=== PATIENT | female | born 1990 | race Caucasian/White ===

== ENCOUNTER 2021-01-18 10:55 | Emergency (ER) | payer OTHER ==
[2021-01-18] MEDS ORDERED: NORCO 5-325 TA1 EACH PO (15:01)
[2021-01-18] MEDS ORDERED: KEFLEX250 MG PO (15:01)
[2021-01-18] MEDS ORDERED: ZOFRAN4 M1 PO (15:20)
== END 2021-01-18 15:45 | disposition home or self-care (01) ==
LOC: FER 10:55
DX: L02.212 Cutaneous abscess of back [any part, except buttock and flank] (principal); L02.411 Cutaneous abscess of right axilla; F17.290 Nicotine dependence, other tobacco product, uncomplicated
CPT/HCPCS: 87070; 87077; 87186; 87205